=== PATIENT | female | born 1955 ===

== ENCOUNTER 2020-08-16 04:20 | Emergency (ER) | payer SELFPAY ==
[2020-08-16] MEDS ORDERED: ASPIRIN 325 MG TAB PO ONE (04:36)
--- NOTE | 2020-08-16 05:14 | XRay Report ---
CHEST 2 VIEWS INDICATION / CLINICAL INFORMATION: chestpain. COMPARISON: None available. FINDINGS: SUPPORT DEVICES: None. HEART / MEDIASTINUM: No significant abnormality. LUNGS / PLEURA: No significant pulmonary or pleural abnormality. No pneumothorax. ADDITIONAL FINDINGS: No significant additional findings. IMPRESSION: 1. No acute findings. Signer Name: Hank Macedo MD Signed: 08/16/2020 5:10 AM Workstation Name: [id number]
[2020-08-16 05:29] LABS: Alanine Aminotransferase 20 units/L (7-56); Albumin 4.2 g/dL (3.9-5); BUN/Creatinine Ratio 21; Blood Urea Nitrogen 19 mg/dL (7-17); Calcium 9.6 mg/dL (8.4-10.2); Hemolysis Index 3
[2020-08-16 05:34] LABS: Basophils % (Auto) 0.5 % (0.0-1.8); Eosinophils # (Auto) 0.3 K/mm3 (0.0-0.4); Eosinophils % (Auto) 3.8 % (0.0-4.3); Hematocrit 38.7 % (30.3-42.9); Hemoglobin 13.5 gm/dl (10.1-14.3); Lymphocytes # (Auto) 2.8 K/mm3 (1.2-5.4); Lymphocytes % (Auto) 30.3 % (13.4-35.0); Mean Corpuscular HGB Conc 35 % (30-34); Mean Corpuscular Volume 89 fl (79-97); Monocytes # (Auto) 0.7 K/mm3 (0.0-0.8); Monocytes % (Auto) 7.7 % (0.0-7.3); Platelet Count 333 K/mm3 (140-440); Red Blood Count 4.37 M/mm3 (3.65-5.03); Red Cell Distribution Width 13.6 % (13.2-15.2)
[2020-08-16] MEDS ORDERED: HALOPERIDOL LACTATE 5 MG/1 ML INJ ONE (07:21)
[2020-08-16] MEDS ORDERED: diphenhydrAMINE 50 MG/ML VIAL ONE (07:21)
[2020-08-16] MEDS ORDERED: LORazepam 2 MG/ML VIAL ONE (07:21)
[2020-08-16] MEDS ORDERED: fentaNYL 100 MCG/2 ML INJ IV ONE (08:33)
[2020-08-16] MEDS ORDERED: ONDANSETRON 4 MG/2 ML INJ IV ONE (08:33)
[2020-08-16] MEDS ORDERED: SODIUM CHLORIDE 0.9% 1000 ML 1,000 ML IV ONE (08:34)
--- NOTE | 2020-08-16 08:38 | Emergency Department Report ---
HPI - General Chief Complaint: Chest Pain Time Seen by Provider: 08/16/20 08:26 - [facility] HPI: Room 21 The patient is a 65-year-old female present with a chief complaint of abdominal pain. Patient states she developed diffuse abdominal pain yesterday has been constant in nature. Patient admits to nausea vomiting. Patient states that eating food worsens the pain. Patient denies dysuria or hematuria. Patient admits to subjective fever. Patient currently gives her pain a score of 10/10 ED Past Medical Hx - Past Medical History Previous Medical History?: Yes Hx Hypertension: Yes Hx Arthritis: Yes Additional medical history: Obesity. Chronic Pain - Surgical History Past Surgical History?: No - Family History Family history: no significant - Social History Smoking Status: Never Smoker (Denies illicit drug use) Substance Use Type: None - Medications Home Medications: Home Medications Medication Instructions Recorded Confirmed Last Taken Type Famotidine [Pepcid] 20 mg PO BID #30 tablet 08/16/20 Unknown Rx HYDROcodone/APAP 5-325 [[place] 1 - 2 each PO Q6HR PRN #10 tablet 08/16/20 Unknown Rx 5/325] Ondansetron [Zofran ODT TAB] 8 mg PO Q8HR #20 tab.rapdis 08/16/20 Unknown Rx ED Review of Systems ROS: Stated complaint: CHEST/BACK/STOMACH PAIN/DRY MOUTH Other details as noted in HPI Constitutional: fever Eyes: denies: eye pain ENT: denies: throat pain Respiratory: no symptoms reported Cardiovascular: denies: chest pain Endocrine: no symptoms reported Gastrointestinal: abdominal pain, nausea, vomiting Genitourinary: denies: dysuria, hematuria Musculoskeletal: back pain Neurological: denies: headache Physical Exam - Physical Exam Vital Signs: Vital Signs 08/16/20 04:27 Temperature 98.2 F Pulse Rate 112 H Respiratory 18 Rate Blood Pressure 187/88 O2 Sat by Pulse 97 Oximetry Vital Signs 08/16/20 08/16/20 08/16/20 04:27 08:34 08:39 Temperature 98.2 F Pulse Rate 112 H 100 H 102 H Respiratory 18 19 Rate Blood Pressure 187/88 O2 Sat by Pulse 97 100 Oximetry 08/16/20 08/16/20 08/16/20 08:40 08:45 09:01 Temperature Pulse Rate 83 86 Respiratory 18 18 15 Rate Blood Pressure 160/75 160/75 O2 Sat by Pulse 99 99 Oximetry Physical Exam: GENERAL: The patient is well-developed well-nourished female lying on stretcher not appearing to be in acute distress. [] HEENT: Normocephalic. Atraumatic. Extraocular motions are intact. Patient has moist mucous membranes. NECK: Supple. Trachea midline CHEST/LUNGS: Clear to auscultation. There is no respiratory distress noted. HEART/CARDIOVASCULAR: Regular. There is tachycardia. There is no gallop rub or murmur. ABDOMEN: Abdomen is soft, nontender. Patient has normal bowel sounds. There is no abdominal distention. SKIN: There is no rash. There is no edema. There is no diaphoresis. NEURO: The patient is awake, alert, and oriented. The patient is cooperative. The patient has no focal neurologic deficits. The patient has normal speech MUSCULOSKELETAL: There is no evidence of acute injury. ED Course Vital Signs 08/16/20 04:27 Temperature 98.2 F Pulse Rate 112 H Respiratory 18 Rate Blood Pressure 187/88 O2 Sat by Pulse 97 Oximetry ED Medical Decision Making - Lab Data Result diagrams: 08/16/20 04:40 08/16/20 04:40 Laboratory Tests 08/16/20 08/16/20 08/16/20 04:40 04:40 08:04 WBC 9.1 RBC 4.37 Hgb 13.5 Hct 38.7 MCV 89 MCH 31 MCHC 35 H RDW 13.6 Plt Count 333 Lymph % (Auto) 30.3 Cole % (Auto) 7.7 H Eos % (Auto) 3.8 Baso % (Auto) 0.5 Lymph # (Auto) 2.8 Cole # (Auto) 0.7 Eos # (Auto) 0.3 Baso # (Auto) 0.0 Seg Neutrophils % 57.7 Seg Neutrophils # 5.3 Sodium 141 Potassium 3.5 L Chloride 101.8 Carbon Dioxide 26 Anion Gap 17 BUN 19 H Creatinine 0.9 Estimated GFR > 60 BUN/Creatinine Ratio 21 Glucose 139 H Calcium 9.6 Total Bilirubin 0.40 AST 22 ALT 20 Alkaline Phosphatase 112 Troponin T < 0.010 < 0.010 Total Protein 7.5 Albumin 4.2 Albumin/Globulin Ratio 1.3 Lipase 18 08/16/20 10:25 WBC RBC Hgb Hct MCV MCH MCHC RDW Plt Count Lymph % (Auto) Cole % (Auto) Eos % (Auto) Baso % (Auto) Lymph # (Auto) Cole # (Auto) Eos # (Auto) Baso # (Auto) Seg Neutrophils % Seg Neutrophils # Sodium Potassium Chloride Carbon Dioxide Anion Gap BUN Creatinine Estimated GFR BUN/Creatinine Ratio Glucose Calcium Total Bilirubin AST ALT Alkaline Phosphatase Troponin T < 0.010 Total Protein Albumin Albumin/Globulin Ratio Lipase - EKG Data -: EKG Interpreted by Me EKG shows normal: sinus rhythm Rate: tachycardia (111 bpm) - EKG Data When compared to previous EKG there are: previous EKG unavailable Interpretation: other (No ischemic changes seen) - Radiology Data Radiology results: report reviewed (Chest x-ray, CT abdomen pelvis), image reviewed (Chest x-ray, CT abdomen pelvis) interpreted by me: Chest x-ray-no focal infiltrates, no pneumothorax. No foreign body seen [address] [address] XRay Report Signed Patient: ELMER BARRY R#: [id number] : 1955 Acct:[id number] Age/Sex: 65 / F ADM Date: 08/16/20 Loc: ED Attending Dr: Ordering Physician: ED MD JACKIE Date of Service: 08/16/20 Procedure(s): XR chest routine 2V Accession Number(s): [id number] cc: ED MD JACKIE Fluoro Time In Minutes: CHEST 2 VIEWS INDICATION / CLINICAL INFORMATION: chestpain. COMPARISON: None available. FINDINGS: SUPPORT DEVICES: None. HEART / MEDIASTINUM: No significant abnormality. LUNGS / PLEURA: No significant pulmonary or pleural abnormality. No pneumothorax. ADDITIONAL FINDINGS: No significant additional findings. IMPRESSION: 1. No acute findings. Signer Name: Hank Macedo MD Signed: 08/16/2020 5:10 AM Workstation Name: [id number] Tra nscribed By: CW Dictated By: EN MACEDO MD Electronically Authenticated By: EN MACEDO MD Signed Date/Time: 08/16/20509 DD/ 9 TD/TT: Print Cancel [address] [address] Cat Scan Report Signed Patient: ELMER BARRY R#: [id number] : 1955 Acct:[id number] Age/Sex: 65 / F ADM Date: 08/16/20 Loc: ED Attending Dr: Ordering Physician: ASIM SAPP MD Date of Service: 08/16/20 Procedure(s): CT abdomen pelvis w con Accession Number(s): [id number] cc: ASIM SAPP MD CT ABDOMEN AND PELVIS WITH CONTRAST INDICATION / CLINICAL INFORMATION: Diffuse abdominal pain, nausea vomiting 100 ml omni 300 . TECHNIQUE: Axial CT images were obtained through the abdomen and pelvis after 100 mL Omnipaque [address] scans at this location are performed using CT dose reduction for ALARA by means of automated exposure control. COMPARISON: None available. FINDINGS: LOWER CHEST: No significant abnormality. LIVER: There is a subcentimeter low density in the left hepatic lobe which is too small to characterize but statistically benign. BILIARY SYSTEM: No significant abnormality. PANCREAS: No significant abnormality. SPLEEN: No significant abnormality. ADRENALS: There is a 2.5 cm indeterminate right adrenal nodule. KIDNEYS and URETERS: No significant abnormality. STOMACH / BOWEL: No significant abnormality. The appendix is normal. PERITONEUM: No free fluid. No free air. No fluid collection. LYMPH NODES: No significant adenopathy. VASCULAR STRUCTURES: No significant abnormality. URINARY BLADDER: No significant abnormality. REPRODUCTIVE ORGANS: No significant abnormality. A small nabothian cyst is noted. ADDITIONAL FINDINGS: None. SKELETAL SYSTEM: Moderate multilevel degenerative change of the spine. IMPRESSION: 1. No acute process identified wit hin the abdomen or pelvis to account for patient's abdominal pain. 2. Incidental 2.5 cm indeterminate right adrenal nodule. Recommend an adrenal protocol CT for further characterization. Signer Name: Tamika Goodrich MD Signed: 08/16/2020 10:31 AM Workstation Name: [id number] Transcribed By: [facility] Dictated By: Tamika Goodrich MD Electronically Authenticated By: Tamika Goodrich MD Signed Date/Time: 1 1031 DD/ 1020 TD/TT: Print Cancel - Differential Diagnosis Gastritis, cholelithiasis, pancreatitis, peptic ulcer disease Critical care attestation.: If time is entered above; I have spent that time in minutes in the direct care of this critically ill patient, excluding procedure time. ED Disposition Clinical Impression: Acute abdominal pain, Nausea & vomiting Disposition: DC-01 TO HOME OR SELFCARE Is pt being admited?: No Does the pt Need Aspirin: No Condition: Stable Instructions: Abdominal Pain, Adult, [id number], Nausea and Vomiting, Adult, [id number] Additional Instructions: Return to the emergency department should you develop worsening symptoms, inability to tolerate food or liquids, high fever or any other concerns Prescriptions: HYDROcodone/APAP 5-325 [[place] 5/325] 1 - 2 each PO Q6HR PRN #10 tablet PRN Reason: Pain Famotidine [Pepcid] 20 mg PO BID #30 tablet Ondansetron [Zofran ODT TAB] 8 mg PO Q8HR #20 tab.rapdis Referrals: TIMOTHY DAVIS MD [Staff Physician] - 3-5 Days (Dr. Davis is a weeder thinner. Please follow-up with him for further evaluation)
[2020-08-16] MEDS ORDERED: ASPIRIN 325 MG TAB PO SCH (09:30)
--- NOTE | 2020-08-16 10:35 | Cat Scan Report ---
CT ABDOMEN AND PELVIS WITH CONTRAST INDICATION / CLINICAL INFORMATION: Diffuse abdominal pain, nausea vomiting 100 ml omni 300 . TECHNIQUE: Axial CT images were obtained through the abdomen and pelvis after 100 mL Omnipaque [address] scans at this location are performed using CT dose reduction for ALARA by means of automated exposure control. COMPARISON: None available. FINDINGS: LOWER CHEST: No significant abnormality. LIVER: There is a subcentimeter low density in the left hepatic lobe which is too small to characteri ze but statistically benign. BILIARY SYSTEM: No significant abnormality. PANCREAS: No significant abnormality. SPLEEN: No significant abnormality. ADRENALS: There is a 2.5 cm indeterminate right adrenal nodule. KIDNEYS and URETERS: No significant abnormality. STOMACH / BOWEL: No significant abnormality. The appendix is normal. PERITONEUM: No free fluid. No free air. No fluid collection. LYMPH NODES: No significant adenopathy. VASCULAR STRUCTURES: No significant abnormality. URINARY BLADDER: No significant abnormality. REPRODUCTIVE ORGANS: No significant abnormality. A small nabothian cyst is noted. ADDITIONAL FINDINGS: None. SKELETAL SYSTEM: Moderate multilevel degenerative change of the spine. IMPRESSION: 1. No acute process identified within the abdomen or pelvis to account for patient's abdominal pain. 2. Incidental 2.5 cm indeterminate right adrenal nodule. Recommend an adrenal protocol CT for further characterization. Signer Name: Tamika Goodrich MD Signed: 08/16/2020 10:31 AM Workstation Name: [id number]
[2020-08-16 14:26] VITALS: BP 139/72
--- NOTE | 2020-08-16 18:12 | Electrocardiograph Report ---
[facility] Test Date: 2020-08-16 Test Time: 04:30:07 Pat Name: ELMER BARRYDepartment: Room: Gender: F Extrusion Supervisor: MARITZA : 1955 Requested By: ASIM SAPP Order Number: [id number] Reading MD: Stanley Rene Measurements Intervals [place] Rate: 111 P: 36 WA: 189 QRS: -35 QRSD: 84 T: 58 QT: 325 QTc: 442 Interpretive Statements Sinus tachycardia Probable left atrial enlargement Possible inferior infarct, old Possible old anterior infarct No previous ECG available for comparison Electronically Signed On 08-16-2020 18:12:01 EDT by Stanley Rene
== END 2020-08-16 13:00 | disposition home or self-care (01) ==
LOC: ED 04:20
DX: R10.84 Generalized abdominal pain (principal); R11.2 Nausea with vomiting, unspecified; I10 Essential (primary) hypertension; M19.91 Primary osteoarthritis, unspecified site; Z79.899 Other long term (current) drug therapy
CPT/HCPCS: 36415; 71046; 74177; 80053; 83690; 84484; 85025; 93005; 96361; 96374; 96375; 99285; J2405; J3010; J7030; Q9967; J1200; J1630; J2060